=== PATIENT | male | born 1965 | race Caucasian/White ===

== ENCOUNTER 2023-04-22 11:28 | Emergency (ER) | payer OTHER ==
[~2023-04-22] VITALS: Ht 170.2 cm; Wt 81.6 kg
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
--- NOTE | 2023-04-22 11:50 | NUR ---
DR SEWELL AT BEDSIDE FOR EVAL
[2023-04-22] MEDS ORDERED: TDAP [DIPH/PERTUSSIS/TET] 0.5 ML VIAL IM ONE (12:14)
--- NOTE | 2023-04-22 12:15 | NUR ---
DR SEWELL AT BEDSIDE FOR WOUND GLUEING
[2023-04-22] MEDS: TDAP [DIPH/PERTUSSIS/TET] 0.5 ML VIAL IM ONE (12:20)
[2023-04-22] MEDS: BACI/NEOM/POLY B OINT PKT 1 UDPKT PACKET TP ONE (12:22)
[2023-04-22] MEDS ORDERED: IBUP-1955 PO (14:08)
--- NOTE | 2023-04-22 14:15 | NUR ---
Patient is resting comfortably in bed with eyes closed. Easily aroused. VSS
[2023-04-22 14:26] VITALS: BP 118/80; TEMP 98
--- NOTE | 2023-04-22 14:26 | NUR ---
Patient discharged to home in stable condition. Written and verbal after care instructions given. Patient verbalizes understanding of instruction.
== END 2023-04-22 14:27 | disposition home or self-care (01) ==
LOC: ER 11:36
DX: S61.512A Laceration without foreign body of left wrist, initial encounter (principal); W45.8XXA Other foreign body or object entering through skin, initial encounter; Y93.89 Activity, other specified; Y92.89 Other specified places as the place of occurrence of the external cause; Y99.8 Other external cause status
CPT/HCPCS: 90715